=== PATIENT | male | born 1995 | race Caucasian/White ===

== ENCOUNTER 2016-07-28 15:53 | Inpatient (IN) | payer BC, MEDICARE ==
[~2016-07-28] VITALS: Ht 188 cm; Wt 74.3 kg
[2016-07-28 16:10] VITALS: BP 115/69
[2016-07-28] MEDS ORDERED: ZOLPIDEM TARTRATE 10 MG TABLET PO PRN (16:30)
[2016-07-28] MEDS ORDERED: LORazepam 2 MG TABLET PO PRN (16:30)
[2016-07-28] MEDS ORDERED: HALOPERIDOL 5 MG TABLET PO PRN (16:30)
[2016-07-28 17:22] VITALS: BP 139/87
[2016-07-28] MEDS: HALOPERIDOL 5 MG TABLET PO SCH (20:21)
[2016-07-29 07:44] LABS: BASOPHILS % (AUTO) 0.7 % (0.0-2.0); EOSINOPHILS % (AUTO) 1.7 % (1.0-6.0); HEMATOCRIT 48.7 % (41-53); HEMOGLOBIN 16.2 g/dL (13.5-17.5); LYMPHOCYTES % (AUTO) 37.6 % (22.0-44.0); MEAN CORPUSCULAR HEMOGLOBIN 31.9 pg (26.0-34.0); MEAN CORPUSCULAR HGB CONC 33.3 G/dL (31.0-37.0); MEAN CORPUSCULAR VOLUME 96 fL (80-100); MONOCYTES # (AUTO) 0.6 K/uL (0.1-1.0); MONOCYTES % (AUTO) 10.7 % (2.0-9.0); NEUTROPHILS # (AUTO) 2.6 K/uL (1.8-7.7); NEUTROPHILS % (AUTO) 49.3 % (40.0-70.0); PLATELET COUNT (AUTO) 199 K/uL (150-450); RED BLOOD CELL COUNT(AUTO) 5.09 MIL/uL (4.50-5.90); WHITE BLOOD COUNT (AUTO) 5.2 K/uL (4.5-11.0)
[2016-07-29] MEDS: BENZTROPINE MESYLATE 0.5 MG TABLET PO SCH ×2 (08:04→08:30)
[2016-07-29 08:08] LABS: ALANINE AMINOTRANSFERASE 36 U/L (12-78); ALBUMIN 3.9 g/dL (3.4-5.0); ANION GAP 9 mmol/L (8-16); ASPARTATE AMINOTRANSFERASE 67 U/L (15-37); BILIRUBIN,TOTAL 0.6 mg/dL (0.1-1.0); CARBON DIOXIDE 29 mmol/L (22-29); CHLORIDE 104 mmol/L (98-107); CREATININE 0.85 mg/dL (0.60-1.30); GLOMERULAR FILTR. RATE CALC > 60 mL/min (>60); SODIUM SERUM 142 mmol/L (136-145); TOTAL PROTEIN, SERUM 6.9 g/dL (6.4-8.2); UREA NITROGEN, BLOOD 9 mg/dL (7-18)
[2016-07-29 08:22] VITALS: BP 140/67
[2016-07-29] MEDS: HALOPERIDOL 5 MG TABLET PO SCH (08:30)
[2016-07-29 08:40] LABS: APPEARANCE,URINE CLEAR (CLEAR); GLUCOSE, URINE (UA) NEGATIVE (NEGATIVE); KETONES,URINE NEGATIVE (NEGATIVE); LEUKOCYTE ESTERASE ,URINE NEGATIVE (NEGATIVE); OCCULT BLOOD,URINE NEGATIVE (NEGATIVE); PROTEIN,URINE NEGATIVE (NEGATIVE)
[2016-07-29 08:43] LABS: ADD UA MICROSCOPIC NO
[2016-07-29] MEDS ORDERED: BENZOCAINE/MENTHOL LOZENGE MM PRN (10:30)
[2016-07-29] MEDS ORDERED: MAG HYDROX/AL HYDROX/SIMETH ES 30 ML SUSPENSION UDCUP PO PRN (10:30)
[2016-07-29] MEDS ORDERED: ALBUTEROL SULFATE HFA 90 MCG/PUFF 8 GM INHALER IH PRN (10:30)
[2016-07-29] MEDS ORDERED: IBUPROFEN 600 MG TABLET PO PRN (10:30)
[2016-07-29] MEDS ORDERED: ONDANSETRON HCL 4 MG TABLET PO PRN (10:30)
[2016-07-29] MEDS ORDERED: MAGNESIUM HYDROXIDE SUSPENSION 30 ML UDCUP PO PRN (10:30)
[2016-07-29] MEDS ORDERED: CloNIDine HCL 0.1 MG TABLET PO PRN (10:30)
[2016-07-29] MEDS ORDERED: LOPERAMIDE HCL 2 MG CAPSULE PO PRN (10:30)
[2016-07-29] MEDS ORDERED: BACITRACIN 28.4 GM OINTMENT TP PRN (10:30)
[2016-07-29] MEDS ORDERED: ACETAMINOPHEN 325 MG TABLET PO PRN (10:30)
[2016-07-29] MEDS ORDERED: PETROLATUM,WHITE 71 GM JELLY TP PRN (10:30)
[2016-07-29 16:14] VITALS: BP 134/75
[2016-07-29] MEDS ORDERED: HALOPERIDOL 5 MG TABLET PO SCH (17:00)
[2016-07-30 06:10] VITALS: BP 128/65
[2016-07-30] MEDS: BENZTROPINE MESYLATE 0.5 MG TABLET PO SCH (08:30)
[2016-07-30] MEDS: HALOPERIDOL 5 MG TABLET PO SCH ×2 (08:30→16:43)
[2016-07-30 08:31] VITALS: BP 126/70
[2016-07-30 16:00] VITALS: BP 128/71
[2016-07-31 07:07] VITALS: BP 112/52
[2016-07-31 08:06] VITALS: BP 130/73
[2016-07-31] MEDS: HALOPERIDOL 5 MG TABLET PO SCH ×2 (08:31→16:45)
[2016-07-31] MEDS: BENZTROPINE MESYLATE 0.5 MG TABLET PO SCH (08:31)
[2016-07-31 16:00] VITALS: BP 133/74
[2016-08-01 04:28] VITALS: BP 136/80
[2016-08-01 08:38] VITALS: BP 129/73
[2016-08-01] MEDS: BENZTROPINE MESYLATE 0.5 MG TABLET PO SCH (08:38)
[2016-08-01] MEDS: HALOPERIDOL 5 MG TABLET PO SCH (08:38)
== END 2016-08-01 12:15 | disposition home or self-care (01) | DRG 885 ==
LOC: B3A 16:23
PROVIDERS: ADMIT Psychiatry & Neurology Psychiatry; ATTEND Psychiatry & Neurology Psychiatry
DX: F31.2 Bipolar disorder, current episode manic severe with psychotic features (principal); F29 Unspecified psychosis not due to a substance or known physiological condition; G47.00 Insomnia, unspecified; F12.90 Cannabis use, unspecified, uncomplicated; R19.7 Diarrhea, unspecified; R45.87 Impulsiveness; Z71.51 Drug abuse counseling and surveillance of drug abuser; Z87.01 Personal history of pneumonia (recurrent)
CPT/HCPCS: 80307; 87081